=== PATIENT | female | born 2000 | race Hispanic/Latino ===

== ENCOUNTER 2024-11-24 16:52 | Emergency (ER) | payer OTHER, SELFPAY ==
[2024-11-24 16:55] VITALS: BP 115/75
[2024-11-24 19:36] VITALS: BP 121/82
[2024-11-24 19:43] VITALS: BMI 32.0
[2024-11-24 19:48] VITALS: BP 121/82
--- NOTE | 2024-11-24 19:52 | ED.GENMED ---
History of Present Illness
<SOHAIL Drake - Last Filed: 11/25/24 09:17>
General
Chief Complaint: Oral/Mouth Problem
Source: patient
Exam Limitations: none
Time Seen by Provider: 11/24/24 19:33
History of Present Illness
History of Present Illness:
Patient is a 24-year-old female who presents to the ER complaining of pain to the region of her left upper lip left-sided nasal facial area for the past several days. She denies any actual tooth. Does feel little swollen to her. She denies any
fever or chills. She denies any difficulty breathing .
Phy Exam
<SOHAIL Drake - Last Filed: 11/25/24 09:17>
General Physical Exam
General Presentation: no apparent distress
General age: appears stated age
General Skin: warm and dry
General Habitus: normal
General Mental: alert
General Hydration: appears well hydrated
ENT Exam
ENT Exam: other (Tenderness to the skin above the left upper lip area medial to nose no obvious abscess minimal swelling of the left medial nares questionable early pimple/mild infection; no erythema to face no trismus no dental tenderness or
cavities noted )
Neurological Exam
Neurological Exam: alert and oriented x3
Musculoskeletal Exam
Musculoskeletal Exam: full ROM
Skin Exam
Skin Exam: normal color
Psychiatric Exam
Psychiatric Exam: normal mood/affect
Course
<SOHAIL Drake - Last Filed: 11/25/24 09:17>
Orders/Labs/Results
Orders:
Orders
11/24/24 19:48
Cephalexin Monohydrate [Keflex] 500 mg PO NOW STA
Vital Signs
Initial and Last Documented VS:
Initial Vital Signs
Temp Pulse Resp BP Pulse Ox
98.5 F 72 16 115/75 100
11/24/24 16:55 11/24/24 16:55 11/24/24 16:55 11/24/24 16:55 11/24/24 16:55
Last Documented Vital Signs
Temp Pulse Resp BP Pulse Ox
99.1 F 78 14 121/82 99
11/24/24 19:36 11/24/24 19:48 11/24/24 19:48 11/24/24 19:48 11/24/24 20:23
Fe[employer]ovator consulted with Physician
[employer]ator consulted with physician?: Yes
Name of Physician Consulted: donya
<Kindra Hope DO - Last Filed: 11/26/24 19:38>
Orders/Labs/Results
Orders:
Orders
11/24/24 19:48
Cephalexin Monohydrate [Keflex] 500 mg PO NOW STA
Vital Signs
Initial and Last Documented VS:
Initial Vital Signs
Temp Pulse Resp BP Pulse Ox
98.5 F 72 16 115/75 100
11/24/24 16:55 11/24/24 16:55 11/24/24 16:55 11/24/24 16:55 11/24/24 16:55
Last Documented Vital Signs
Temp Pulse Resp BP Pulse Ox
99.1 F 78 14 121/82 99
11/24/24 19:36 11/24/24 19:48 11/24/24 19:48 11/24/24 19:48 11/24/24 20:23
<SOHAIL Drake - Last Filed: 11/25/24 09:17>
MDM/Problems Addressed
Differential Diagnosis Includes:
Not limited skin infection, cellulitis, abscess
MDM/Problems Addressed:
Patient has discomfort under the left upper lip adjacent to the left medial nose. Feels mildly full on exam possible inflamed pimple very minimal swelling however patient no acute distress denies any fevers. No dental tenderness. She has appoint
with her family doctor on Wednesday. Will DC with warm compresses and antibiotics. Patient eval by ED physician. Will also give ENT as needed
<SOHAIL Drake - Last Filed: 11/25/24 09:17>
*Pulse Oximetry
SaO2: 95
Oxygen Mode of Delivery: Room air
Patient hypoxic: no
*Critical Care Note
Total Time (30-74mins, 75-104mins- exclusive of procedures): Not Applicable
ED Attending Note
<SOHAIL Drake - Last Filed: 11/25/24 09:17>
-
Portions of this chart may have been created with voice recognition software.� Occasional wrong word or��sound alike� substitutions may have occurred due to the inherent limitations of voice recognition software.
<Kindra Hope DO - Last Filed: 11/26/24 19:38>
ED Attending Note
Patient seen and examined by attending physician: Yes
I performed the substantive portion of visit, reviewed & personally made and approve the management plan that is documented in note by myself or LAMONT.: Yes
I performed a history and physical exam of patient and discussed management with resident, I reviewed resident's note and agree with documented findings and plan of care.: Yes
ED Attending Note:
24-year-old female presents to the ER for evaluation of pain at the base of her left nostril and left upper lip which have been present and worsening over the past day. No reported fever. No trauma. No loose dentition. No tooth sensitivity. No
recent antibiotic usage. Vital signs reviewed, patient is awake, alert, appears no acute distress, mucous membranes moist, mild swelling noted at the base of the left nostril without erythema pointing or fluctuance, area on the left side of the
philtrum is exquisitely tender on palpation with fullness in comparison to normal right side, there is no overlying skin changes, there is palpable fullness in this area in comparison to normal right upper lip/philtrum, underlying gum and dentition
appear intact, oral mucosa is normal without ulceration or change, mucous membranes moist, GCS is 15. I discussed with patient most likely etiology symptoms related to infected epidermal cyst/early abscess unrelated to dentition. I discussed with
patient use of antibiotics and warm compresses along with outpatient reevaluation and care. Patient expressed understanding of discharge plan and had no questions prior to that department.
Discharge Plan
Departure
Patient Disposition: Home (Routine Discharge)
Date of Disposition: 11/24/24
Time of Disposition: 20:10
Patient with high blood pressure during this ER visit?: No
Condition: Fair
Discharge Problem:
mild skin infection
Prescriptions:
New
cephalexin 500 mg capsule
500 mg PO Q6H Qty: 28 0RF
Referrals:
Samantha Nixon MD [Family Provider]
Activity Restrictions/Additional Instructions:
Findings are consistent with possible early infection.
You were given 1 dose of antibiotics here and a prescription. Warm compresses and antibiotic as discussed. Close follow-up with family doctor as scheduled on Wednesday return if any worsening of symptoms include increasing facial swelling pain fever
chills.
Interventions
Interventions:
*Risk Screen - Suicide Last Done: 11/24/24 16:55
*General Assessment Last Done: 11/24/24 19:43
*Neglect/Abuse Screening Last Done: 11/24/24 16:55
*ED- Fall Risk Assessment Last Done: 11/24/24 19:37
*ED COVID-19 Vaccine History Last Done: 11/24/24 19:43
*Nursing Disposition Last Done: 11/24/24 20:23
Discharge Date and Time
Discharge Date/Time: 11/24/24 20:26
Print Language: MAORI
[2024-11-24] MEDS: KEFLEX 500 MG PO (19:53)
== END 2024-11-24 20:26 | disposition home or self-care (01) ==
LOC: EMR 16:52
PROVIDERS: EMERGENCY PHYSICIAN Emergency Medicine; FAMILY PHYSICIAN Family Medicine
DX: L08.9 Local infection of the skin and subcutaneous tissue, unspecified (principal)
CPT/HCPCS: 99283